=== PATIENT | male | born 1955 | race Caucasian/White ===

== ENCOUNTER → 2016-07-21 | Outpatient (CLI) | payer MEDICARE ==
[~2016-07-21] MED LIST: ACET-703 PO; ACET-822 PO; ADVI200C PO; AMLO10TA2 PO; AMLO2.5T PO; ATOR10TA15 PO; ATOR40TA16 PO; CYCL1TAB29 PO; CYCL5TAB PO; DICL1CAP3 PO; DICL75TA PO; DIPH1TAB36 PO; GLIP5TAB8 PO; LEVEMIR SQ; METH750T PO; NIGH25TA11; OXYB5TAB PO; TRAM50TA PO
[2016-07-21 12:04] LABS: AUTOMATED NEUTROPHIL # 5.8 TH/MM3 (1.8-7.7); BASOPHIL # 0.1 TH/MM3 (0-0.2); BASOPHIL % 0.9 % (0.0-2.0); EOSINOPHIL # 0.5 TH/MM3 (0-0.4); EOSINOPHIL % 5.8 % (0.0-4.0); HEMATOCRIT 32.3 % (39.0-51.0); HEMO FLAGS DIFF FINAL; LYMPH % 23.6 % (9.0-44.0); LYMPHOCYTE # 2.1 TH/MM3 (1.0-4.8); MEAN CELL VOLUME 91.4 FL (80.0-100.0); MEAN CORPUSCULAR HEMOGLOBIN 30.5 PG (27.0-34.0); MEAN CORPUSCULAR HGB CONC 33.3 % (32.0-36.0); MONO % 6.3 % (0.0-8.0); NEUT % 63.4 % (16.0-70.0); PLATELET COUNT 188 TH/MM3 (150-450); RED BLOOD COUNT 3.53 MIL/MM3 (4.50-5.90); RED CELL DISTRIBUTION WIDTH 13.8 % (11.6-17.2); WHITE BLOOD COUNT 9.1 TH/MM3 (4.0-11.0)
--- NOTE | 2016-07-22 20:39 | EKG ---
Date Performed: 07/21/2016 Time Performed: 10:52:18 PTAGE: 61 years EKG: Sinus rhythm MODERATE INTRAVENTRICULAR CONDUCTION DELAY BORDERLINE ECG Compared to prior tracing no significant c stacey DOCTOR: Anneliese Myles Interpretating Date/Time 07/22/2016 20:38:01
== END ==
LOC: CPRE 07:25
PROVIDERS: ATTEND Urology
DX: Z01.810 Encounter for preprocedural cardiovascular examination (principal); Z01.812 Encounter for preprocedural laboratory examination; N52.9 Male erectile dysfunction, unspecified
CPT/HCPCS: 36415; 85025; 93005

== ENCOUNTER → 2016-07-28 | Day surgery (SDC) | payer MEDICARE ==
[~2016-07-28] VITALS: Ht 182.9 cm; Wt 166.7 kg
[~2016-07-28] MED LIST changes: -ADVI200C PO; -AMLO2.5T PO; +AMPICILLIN/SULBAC 3 GM/NS 100 ML IV PRN; -ATOR10TA15 PO; +CHLORHEXIDINE GLUCONATE 2 % 1 PACK (2 CLOTHS) TOPICAL PRN; -CYCL5TAB PO; -DICL1CAP3 PO; +DICLOFENAC SODIUM 37.5 MG/ML VIAL IV PUSH ONE; +DO NOT ADM ANY ANTICOAGULANT DRUGS PRN; +FAMOTIDINE 20 MG/2 ML VIAL IV ONE; +FAMOTIDINE 20 MG/2 ML VIAL ONE; +GENTAMICIN ONE; +INSULIN HUMAN REGULAR 1,000 UNITS/10 ML VIAL SQ PRN; +LACTATED RINGER'S 1000 ML INJ 1,000 ML IV SCH; +METOCLOPRAMIDE HCL 10 MG/2 ML VIAL IV ONE; +METOCLOPRAMIDE HCL 10 MG/2 ML VIAL ONE; +METOPROLOL TARTRATE 25 MG TAB PO PRN; +MIDAZOLAM HCL 2 MG/2 ML VIAL IV ONE; +MIDAZOLAM HCL 2 MG/2 ML VIAL ONE; +ONDANSETRON HCL 4 MG/2 ML VIAL IV PUSH ONE; +ONDANSETRON HCL 4 MG/2 ML VIAL IV PUSH PRN; +POVIDONE IODINE 5% (ANTISEPSIS KIT) 4 APPLICATIONS EACH NARE PRN; +PROPOFOL 200 MG/20 ML AMP IV ONE; +RIFAMPIN ONE; +SODIUM CHLORID 0.9% 500 ML IV PRN; +SODIUM CHLORIDE 0.9% ONE; +SUGAMMADEX SODIUM 200 MG/2 ML VIAL IV PUSH ONE; +VANCOMYCIN HCL 1000 MG ON-CALL/NS 250 ML IV SCH; +ceFAZolin INJ 1,000 MG VIAL ONE; +fentaNYL CITRATE 250 MCG/5 ML AMP ONE
[2016-07-28 06:37] VITALS: BP 147/77; PULSE 81; RESP 18; TEMP 98.1; O2SAT 94
[2016-07-28 11:19] VITALS: BP 146/84; PULSE 76; RESP 18; TEMP 97.3; O2SAT 98
== END | disposition home or self-care (01) ==
LOC: HSDC 05:41
PROVIDERS: ATTEND Urology
DX: N52.9 Male erectile dysfunction, unspecified (principal); N39.46 Mixed incontinence; B35.6 Tinea cruris; I10 Essential (primary) hypertension; J44.9 Chronic obstructive pulmonary disease, unspecified; E11.9 Type 2 diabetes mellitus without complications; Z79.4 Long term (current) use of insulin; Z53.09 Procedure and treatment not carried out because of other contraindication; Z85.46 Personal history of malignant neoplasm of prostate
CPT/HCPCS: 00938; 54405; J0295; J0690; J2250; J2405; J2765; J3010; J3370; J7050; J7120; J1130

== ENCOUNTER 2018-03-22 07:56 | Observation (INO) ==
[2018-03-22] MEDS ORDERED: Metoprolol Tartrate 25 MG Tablet PO ONE (08:23)
[2018-03-22] MEDS ORDERED: Chlorhexidine Gluconate 2% 1 Pack (2 Cloths) TOPICAL ONE (08:23)
[2018-03-22] MEDS ORDERED: Sodium Chlor 0.9% Inj 500 ML IV.SIG ONE (09:00)
[2018-03-22] MEDS ORDERED: Insulin NovoLIN Regular Correctional Sugar Inj SQ SCH (09:02)
[2018-03-22 11:02] LABS: Calcium 8.2 mg/dL (8.5-10.1); Carbon Dioxide 23.9 meq/L (21.0-32.0)
--- NOTE | 2018-03-22 11:02 | P.PNVS ---
- Pre-operative Note Planned Procedure: RIGHT ARM AVF (likely brachiobasilic) Interval History: pt has been feeling well; no changes that would preclude OR Labs: pending Blood: T&S Imaging: duplex reviewed - adequate B UE basilic veins Orders: NPO Vanc 1g Iv OCTOR Post-operative Destination: PACU and CPCU Operative site marked: Yes Consent: Informed consent has been obtained from Flo Aguillon. I have explained the procedure in detail and discussed the risks, benefits, and potential complications. All questions have been answered.
[2018-03-22 11:03] LABS: Potassium 4.1 meq/L (3.5-5.1)
[2018-03-22] MEDS ORDERED: fentaNYL Citrate Inj 250 MCG/5 ML Ampul ONE (13:14)
[2018-03-22] MEDS ORDERED: Heparin/NS PF Inj 500 ML ONE (13:28)
[2018-03-22] MEDS ORDERED: Bupivacaine PF 0.5% Inj 10 ML Vial ONE (13:28)
[2018-03-22] MEDS ORDERED: Thrombin Topical 20,000 UNIT Spray Kit TOPICAL ONE (13:28)
[2018-03-22] MEDS ORDERED: Heparin 10,000 UNITS/10 ML Vial (for IV use) ONE (13:28)
[2018-03-22] MEDS ORDERED: Protamine Sulfate Inj 50 MG/5 ML Vial ONE (13:28)
[2018-03-22] MEDS ORDERED: ceFAZolin 1 GM Premix Inj 0 GM/0 ML FROZ.PIGGY IV.SIG ONE (13:28)
[2018-03-22] MEDS ORDERED: Cisatracurium Inj 20 MG/10 ML Vial ONE (13:52)
--- NOTE | 2018-03-22 15:27 | ECG ---
Date Performed: 03/22/2018 Time Performed: 09:27:57 PTAGE: 63 years EKG: ATRIAL FLUTTER/TACHYCARDIA WITH RAPID VENTRICULAR RESPONSE MARKED LEFT AXIS DEVIATION PATTE RN CONSISTENT WITH PULMONARY DISEASE MODERATE INTRAVENTRICULAR CONDUCTION DELAY ST DEPRESSION, CONSID ER SUBENDOCARDIAL INJURY ABNORMAL ECG PREVIOUS TRACING : 03/02/2018 11.15 Since the previous tracing, no significant change noted DOCTOR: Ranjeet Webster Interpretating Date/Time 03/22/2018 15:25:58
[2018-03-22] MEDS ORDERED: Bisacodyl 10 MG Supp RECTAL PRN (15:38)
[2018-03-22] MEDS ORDERED: Metoprolol Inj 5 MG/5 ML Vial IV.PUSH PRN (15:38)
--- NOTE | 2018-03-22 15:38 | P.OP ---
- Preoperative Diagnosis (1) ESRD (end stage renal disease) on dialysis - Postoperative Diagnosis (1) ESRD (end stage renal disease) on dialysis Date of procedure: 03/22/18 Procedure: R brachiobasilic AVF (1st stage) Implants: none Anesthesia: SULEMA Surgeon: Osvaldo Dill MD Community Educator: Avni Pack Estimated blood loss (mL): 30 IV fluids (mL): 500 Pathology: none sent Operation and Findings: 5mm vein, 5mm artery good thrill and radial Doppler signal after AVF creation
[2018-03-22] MEDS: dilTIAZem 60 MG Tablet PO SCH ×2 (16:14→19:03)
[2018-03-22] MEDS ORDERED: Heparin 10,000 UNITS/10 ML Vial (for IV use) OTHER PRN ×2 (16:43)
[2018-03-22] MEDS ORDERED: Acetaminophen 325 MG Tablet PO PRN (16:43)
[2018-03-22] MEDS ORDERED: Gelatin 12 MM/7 MM Topical Foam TOPICAL PRN (16:43)
[2018-03-22] MEDS ORDERED: Sod Chloride 0.9% Inj 1,000 ML IV.CONT PRN (16:43)
[2018-03-22] MEDS ORDERED: Sod Chloride 0.9% Inj 1,000 ML OTHER PRN ×2 (16:43)
[2018-03-22] MEDS ORDERED: Albumin Human 25% Inj 100 ML IV.SIG PRN (16:43)
--- NOTE | 2018-03-22 17:08 | P.CONNP ---
History of Present Illness Service: Nephrology Reason for Consult: ESRD Primary Care Provider: Aidan Villalba MD History of Present Illness: Mr. Aguillon is 63 year old with ESRD on HD at [facility] on MWF. Patient has history of obesity, hypertension, and DM 2. Also has history of prostatectomy for prostate cancer. He underwent right brachiobasilic AVF today. Seen after surgery. Not in distress. [facility] - History History Provided By: Patient - Medical History Medical History: Medical History (Last Reviewed 03/02/18 @ 11:15 by Jillian Manzo) Diabetes Kidney disease Vascular dialysis catheter in place - Tobacco History Second Hand Smoke Exposure: Yes Tobacco Use In Past 30 Days: No Smoking Status: Former smoker Tobacco Type: Cigarettes - Alcohol History How Often Do You Have a Drink Containing Alcohol: Never - Substance Use History Substance History: No History of Abuse - Travel History Recent Travel in the [facility] Within the Last 8 Weeks: No Recent Travel Out of the Country Within the Last 8 Weeks: No Medications and Allergies Active Medications: Active Medications Acetaminophen (Tylenol) 650 mg PO UNSCH PRN PRN Reason: SEE LABEL COMMENTS Al Hydroxide/Mg Hydroxide (Milk Of Aly Araujo) 30 ml PO Q12H PRN PRN Reason: Mild Constipation Amiodarone HCl (Cordarone) 200 mg PO BID [facility] Amlodipine Besylate (Norvasc) 10 mg PO DAILY [facility] Apixaban (Eliquis) 5 mg PO BID [facility] Aspirin (Aspirin Chew) 81 mg PO DAILY [facility] Atorvastatin Calcium (Lipitor) 20 mg PO DAILY [facility] Bisacodyl (Dulcolax Supp) 10 mg RECTAL DAILY PRN PRN Reason: SEVERE CONSITIPATION Calcium Acetate (Phoslo) 667 mg PO TID [facility] Clonidine HCl (Catapres) 0.1 mg PO UNSCH PRN PRN Reason: SEE LABEL COMMENTS Cyclobenzaprine HCl (Flexeril) 10 mg PO TID PRN PRN Reason: Muscle Pain Diltiazem HCl (Cardizem) 60 mg PO TID [facility] Last Admin: 03/22/18 16:14 Dose: 60 mg Diphenhydramine HCl (Benadryl) 25 mg PO UNSCH PRN PRN Reason: SEE LABEL COMMENTS Epoetin Con (Epogen Inj) 10,000 unit IV.PUSH UNSCH PRN PRN Reason: SEE LABEL COMMENTS Gelatin (Gelfoam 12 Mm/7 Mm Topical) 1 foam TOPICAL PRN PRN PRN Reason: help stop bleeding from site Gentamicin Sulfate (Gentamicin Inj) 20 mg OTHER WITH DIALYSIS PRN PRN Reason: Dwell Gentamycin Lock Heparin Sodium (Porcine) (Heparin Inj) 5,000 units SQ Q8H [facility] Stop: 03/23/18 20:59 Heparin Sodium (Porcine) (Heparin Inj) 8,000 units OTHER WITH DIALYSIS PRN PRN Reason: for machine prime Heparin Sodium (Porcine) (Heparin Inj) 1,000 units OTHER WITH DIALYSIS PRN PRN Reason: Dwell Heparin to Fill Catheter Hydromorphone HCl (Dilaudid) 2 mg PO Q4H PRN PRN Reason: PAIN SCALE 6 TO 10 Stop: 03/22/18 23:55 Lactated Ringer's (Lr 1000 Ml Inj) 1,000 mls @ 30 mls/hr IV.SIG .Q24H [facility] Stop: 03/23/18 08:29 Last Admin: 03/22/18 09:24 Dose: Not Given Sodium Chloride (Ns Inj) 500 mls @ 30 mls/hr IV.SIG .Q10H ONE Stop: 03/23/18 01:39 Last Admin: 03/22/18 09:00 Dose: 30 mls/hr Albumin Human (Flexbumin 25% Inj) 100 mls @ 60 mls/hr IV.SIG WITH DIALYSIS PRN PRN Reason: hypotension / volume replace Sodium Chloride (Ns Inj) 1,000 mls @ 0 mls/hr OTHER .Q0M PRN PRN Reason: for prime and rinse back Sodium Chloride (Ns Inj) 1,000 mls @ 200 mls/hr OTHER .Q5H PRN PRN Reason: for dialyzer flush PRN Sodium Chloride (Ns Inj) 1,000 mls @ 0 mls/hr IV.CONT .Q0M PRN PRN Reason: hypotension / volume replace Insulin Human Regular (Novolin R Correctional Sugar Inj) 0 units SQ STOCK REPLENISHER [facility] ; Protocol Stop: 03/25/18 09:01 Last Admin: 03/22/18 09:15 Dose: 10 units Lactulose (Lactulose Liq) 30 ml PO DAILY PRN PRN Reason: SEVERE CONSITIPATION Mannitol (Mannitol Inj) 12.5 gm IV.PUSH UNSCH PRN PRN Reason: hypotension / volume replace Metoprolol Succinate (Toprol Xl) 100 mg PO DAILY [facility] Metoprolol Tartrate (Lopressor Inj) 5 mg IV.PUSH Q4H PRN PRN Reason: SYS BP GREATER THAN 170 MMHG Miscellaneous Information ([facility] Information) 1 each OTHER UNSCH PRN PRN Reason: SEE LABEL COMMENTS Stop: 03/23/18 15:35 Nitroglycerin (Nitrostat Sl) 0.4 mg SL Q5M PRN PRN Reason: CHEST PAIN Ondansetron HCl (Zofran Inj) 4 mg IV.PUSH UNSCH PRN PRN Reason: NAUSEA OR VOMITING Oxycodone HCl (Roxicodone) 5 mg PO Q4H PRN PRN Reason: PAIN SCALE 1 TO 5 Stop: 03/22/18 23:55 Senna/Docusate Sodium (Nori-Colace) 1 tab PO BID [facility] Sennosides (Senokot) 17.2 mg PO Q12H PRN PRN Reason: Moderate Constipation Sodium Bicarbonate (Sodium Bicarbonate) 325 mg PO QID [facility] Sodium Chloride (Ns Flush) 5 ml IV.FLUSH PRN PRN PRN Reason: flush each lumen during HD Tramadol HCl (Ultram) 50 mg PO BID PRN PRN Reason: Pain 1-10 Vitamin D (Vitamin D3) 1,000 unit PO DAILY [facility] Allergies Allergy/AdvReac Type Severity Reaction Status Date / Time No Known Allergies Allergy Verified 03/22/18 08:22 Home Medications Medication Instructions Recorded Confirmed Type amiodarone 200 mg PO BID 03/02/18 03/22/18 History amlodipine 10 mg PO DAILY 03/02/18 03/22/18 History apixaban [Eliquis] 5 mg PO BID 03/02/18 03/22/18 History atorvastatin 20 mg PO DAILY 03/02/18 03/22/18 History calcium acetate 667 mg PO TID 03/02/18 03/22/18 History cholecalciferol (vitamin D3) 1,000 unit PO DAILY 03/02/18 03/22/18 History [Vitamin D3] cyclobenzaprine 10 mg PO TID PRN 03/02/18 03/22/18 History diltiazem HCl [Cardizem] 60 mg PO TID 03/02/18 03/22/18 History metoprolol succinate 100 mg PO DAILY 03/02/18 03/22/18 History sodium bicarbonate 325 mg PO QID 03/02/18 03/22/18 History tramadol 50 mg PO BID PRN 03/02/18 03/22/18 History Exam Vital signs: Vital Signs 03/22/18 09:05 03/22/18 15:35 03/22/18 15:45 Temperature 98.0 F 98.4 F Pulse Rate 119 H 114 H 115 H Respiratory Rate 18 20 18 Blood Pressure 140/87 130/98 H 121/56 L Pulse Oximetry 99 93 L 92 L 03/22/18 16:00 03/22/18 16:15 03/22/18 16:30 Temperature Pulse Rate 116 H 113 H 114 H Respiratory Rate 22 22 21 Blood Pressure 108/59 L 116/59 L 103/67 Pulse Oximetry 95 97 97 Intake & Output 03/21/18 03/22/18 03/22/18 18:59 06:59 18:59 Intake Total 500 / 500 Output Total 30 / 30 Balance 470 / 470 Weight 148.1 kg Intake: Anesthesia Amount 500 / 500 Output: Estimated Blood Loss 30 Other: # Voids 1 Weight On Admission 148.1 kg - Constitutional no acute distress - Routine HEENT Exam Head: Present: normocephalic, atraumatic Eye: Present: EOMI, PERRL - Routine Neck Exam Present: supple - Routine Respiratory Exam Present: CTA bilaterally - Routine Cardiovascular Exam Present: RRR, S1, S2 - Routine Abdominal Exam Present: soft, normoactive bowel sounds - Routine Extremities Exam Present: edema. Absent: cyanosis, clubbing Results - Lab Results 03/22/18 08:55 Most recent lab results Calcium 8.2 mg/dL (8.5-10.1) L 03/22/18 08:55 Assessment and Plan - Assessment (1) ESRD (end stage renal disease) on dialysis Code(s): N18.6 - End stage renal disease; Z99.2 - Dependence on renal dialysis Status: Acute Plan: He usually dialyzes MWF. I have ordered dialysis for tomorrow. During my interview, the patient became very angry that he needs to undergo dialysis here in the hospital. Apparently he was told that "he can miss dialysis on Wednesday ". He is upset that he is getting conflicting responses. It is unclear who had told him that he could miss dialysis tomorrow. I have recommended he undergo dialysis here in the hospital or at his clinic tomorrow. He became even more angry, starting cursing, threw the breakfast tray. Therefore it is unclear if he will agree for dialysis tomorrow. (2) Type 2 diabetes mellitus Code(s): E11.9 - Type 2 diabetes mellitus without complications Status: Acute Plan: Blood sugar appears to be poorly controlled. Recommend to maintain blood glucose between 140 and 180. - Attending Attestation Thanks for the consult!
--- NOTE | 2018-03-22 18:14 | MP ---
cc: Osvaldo Dill MD DATE OF OPERATION: 03/22/2018 PREOPERATIVE DIAGNOSIS: Endstage renal disease, need for dialysis access. POSTOPERATIVE DIAGNOSIS: Endstage renal disease, need for dialysis access. PROCEDURE PERFORMED: Right brachiobasilic arteriovenous fistula (first stage). ATTENDING SURGEON: Osvaldo Dill MD DESK DIRECTOR SURGEON: Avni Pack. ANESTHESIA: General. INDICATIONS FOR PROCEDURE: Mr. Aguillon is a 63-year-old gentleman with end-stage renal disease, currently getting dialysis through a tunneled catheter. He presents for elective access. Preoperative duplex imaging suggested his right basilic vein was the most appropriate vein. DESCRIPTION OF PROCEDURE: Informed consent was obtained from the patient. He was taken to the operating room and placed supine on the operating table. An appropriate timeout was taken to ensure the patient's identity, operative site and planned procedure. The administration of 1 gram of vancomycin was initiated prior to skin incision and will be discontinued after single preoperative dose. Vancomycin was chosen because of the patient's end-stage renal disease. Everyone in the room agreed with the timeout and we proceeded. His right arm was prepped and draped. Incision made over the distal aspect of the upper arm, carried down through subcutaneous tissue with electrocautery. Basilic vein was identified and dissected free for several centimeters. Side branches were ligated with 3-0 silk. The vein was marked for orientation, clamped distally, transected and the distal end was oversewn with 3-0 silk. The brachial artery was identified in the medial aspect of the incision and dissected free for several centimeters. The patient was systemically heparinized with 3000 units of intravenous heparin. Proximal and distal control of the brachial artery were obtained with profunda clamps and a longitudinal arteriotomy was made with an 11 blade, extended with Gilbert scissors. The vein was spatulated and sewn end-to-side with running 6-0 Prolene suture. At the completion, it was flushed and noted to be hemostatic. The clamps were released. There was nice Doppler signal in the radial artery at the wrist and an excellent thrill in the fistula. The wound was infiltrated with Marcaine, made hemostatic and closed with 2-0 Polysorb, 3-0 Polysorb and 4-0 Monocryl. The heparin had been reversed with protamine. There were no complications. I was present and scrubbed for the entire procedure. MD Rae Shea , 05:42 PM , 05:49 PM
[2018-03-22] MEDS: Amiodarone 200 MG Tablet PO SCH (20:31)
[2018-03-22] MEDS: Senna/Docusate Sodium 8.6/50 MG Tablet PO SCH (23:31)
[2018-03-22] MEDS: Calcium Acetate 667 MG Capsule PO SCH (23:32)
[2018-03-23 04:21] LABS: Hematocrit 32.8 % (39.0-51.0); Hemoglobin 10.9 gm/dL (13.0-17.0); Mean Corpuscular HGB Conc 33.4 % (32.0-36.0); Mean Corpuscular Hemoglobin 28.4 pg (27.0-34.0); Mean Corpuscular Volume 85.1 fL (80.0-100.0); Platelet Count 234 th/mm3 (150-450); Red Blood Count 3.85 mil/mm3 (4.50-5.90); Red Cell Distribution Width 15.7 % (11.6-17.2); White Blood Count 10.8 th/mm3 (4.0-11.0)
[2018-03-23 04:41] LABS: Calcium 8.2 mg/dL (8.5-10.1); Carbon Dioxide 25.2 meq/L (21.0-32.0); Potassium 3.7 meq/L (3.5-5.1)
[2018-03-23 07:24] VITALS: O2SAT 96
--- NOTE | 2018-03-23 07:53 | P.PNVS ---
Subjective Post Op Day #: 1 Procedure: R brachiobasilic AVF Subjective/Hospital Course: looks good, no hand complaints Objective Vital Signs / I&O: Vital Signs 03/22/18 09:05 03/22/18 15:35 03/22/18 15:45 Temperature 98.0 F 98.4 F Pulse Rate 119 H 114 H 115 H Respiratory Rate 18 20 18 Blood Pressure 140/87 130/98 H 121/56 L Pulse Oximetry 99 93 L 92 L 03/22/18 16:00 03/22/18 16:15 03/22/18 16:30 Temperature Pulse Rate 116 H 113 H 114 H Respiratory Rate 22 22 21 Blood Pressure 108/59 L 116/59 L 103/67 Pulse Oximetry 95 97 97 03/22/18 17:00 03/22/18 18:00 03/22/18 20:00 Temperature 97.7 F Pulse Rate 114 H 111 H 113 H Respiratory Rate 22 19 12 Blood Pressure 101/67 114/66 129/76 Pulse Oximetry 97 98 94 L 03/22/18 21:25 03/23/18 00:00 03/23/18 03:28 Temperature 98.2 F 98.4 F Pulse Rate 115 H 116 H 116 H Respiratory Rate 18 18 Blood Pressure 138/89 96/68 L Pulse Oximetry 96 95 03/23/18 04:00 03/23/18 04:28 03/23/18 05:00 Temperature 98.3 F Pulse Rate 112 H 101 H 100 H Respiratory Rate 18 Blood Pressure 102/70 Pulse Oximetry 96 03/23/18 06:00 Temperature Pulse Rate 112 H Respiratory Rate Blood Pressure Pulse Oximetry Intake & Output 03/22/18 03/23/18 03/23/18 18:59 06:59 18:59 Intake Total 740 / 740 1440 / 1440 Output Total 30 / 30 275 / 275 Balance 710 / 710 1165 / 1165 Weight 148.1 kg 147.2 kg Intake: Oral 240 / 240 1440 / 1440 Anesthesia Amount 500 / 500 Output: Urine 275 / 275 Estimated Blood Loss 30 / 30 Other: # Voids 1 1 Weight On Admission 148.1 kg Exam: R UE incision with minimal ecchymoses +thrill hand ok Laboratory Results - last 24 hr 03/22/18 03/22/18 03/22/18 08:53 08:55 08:55 WBC RBC Hgb Hct MCV MCH MCHC RDW Plt Count MPV Sodium 130 L Potassium 4.1 Chloride 96 L Carbon Dioxide 23.9 Anion Gap 10 BUN 52 H Creatinine 5.93 H Estimated GFR 10 L POC Glucose 318 H Random Glucose 315 H Calcium 8.2 L Blood Type A Positive Blood Type Recheck Not needed Antibody Screen Negative 03/22/18 03/22/18 03/23/18 13:46 15:41 04:09 WBC 10.8 RBC 3.85 L Hgb 10.9 L Hct 32.8 L MCV 85.1 MCH 28.4 MCHC 33.4 RDW 15.7 Plt Count 234 MPV 8.0 Sodium Potassium Chloride Carbon Dioxide Anion Gap BUN Creatinine Estimated GFR POC Glucose 182 H 218 H Random Glucose Calcium Blood Type Blood Type Recheck Antibody Screen 03/23/18 04:09 WBC RBC Hgb Hct MCV MCH MCHC RDW Plt Count MPV Sodium 130 L Potassium 3.7 Chloride 94 L Carbon Dioxide 25.2 Anion Gap 11 BUN 56 H Creatinine 6.21 H Estimated GFR 9 L POC Glucose Random Glucose 326 H Calcium 8.2 L Blood Type Blood Type Recheck Antibody Screen Assessment and Plan - Assessment (1) ESRD (end stage renal disease) on dialysis Code(s): N18.6 - End stage renal disease; Z99.2 - Dependence on renal dialysis Status: Acute - Plan POD#1 s/p R UE BB AVF 1. HD today 2. D/C after HD Discharge Planning: after HD
[2018-03-23 08:23] VITALS: BP 131/74; RESP 20; TEMP 97.9
[2018-03-23] MEDS: Amiodarone 200 MG Tablet PO SCH (08:59)
[2018-03-23] MEDS: Senna/Docusate Sodium 8.6/50 MG Tablet PO SCH (08:59)
[2018-03-23] MEDS ORDERED: amLODIPine 10 MG Tablet PO SCH (09:00)
[2018-03-23] MEDS: Calcium Acetate 667 MG Capsule PO SCH (09:00)
[2018-03-23] MEDS: dilTIAZem 60 MG Tablet PO SCH (09:00)
[2018-03-23 09:20] VITALS: PULSE 116
--- NOTE | 2018-03-23 09:27 | P.DS ---
Discharge Summary - Admission Date 03/22/18 16:04 - Admission Diagnosis (1) ESRD (end stage renal disease) on dialysis - Discharge Date 03/23/18 - Discharge Diagnosis (1) AVF (arteriovenous fistula) Status: Acute (2) ESRD (end stage renal disease) on dialysis Status: Acute - Summary Brief History from admission: 63/M w/ a Hx of ESRD on HD Admitted for a R UE AVF creation Procedure: R brachiobasilic AVF Significant Findings: Palpable thrill near R UE AVF No hand pain Mild ecchymosis noted near incision line palpable R radial pulse noted Abnormal Lab Results 03/22/18 03/22/18 03/22/18 08:55 08:55 13:46 WBC RBC Hgb Hct MCV MCH MCHC RDW Plt Count MPV Sodium 130 L Potassium 4.1 Chloride 96 L Carbon Dioxide 23.9 Anion Gap 10 BUN 52 H Creatinine 5.93 H Estimated GFR 10 L POC Glucose 182 H Random Glucose 315 H Calcium 8.2 L Blood Type A Positive Blood Type Recheck Not needed Antibody Screen Negative 03/22/18 03/23/18 03/23/18 15:41 04:09 04:09 WBC 10.8 RBC 3.85 L Hgb 10.9 L Hct 32.8 L MCV 85.1 MCH 28.4 MCHC 33.4 RDW 15.7 Plt Count 234 MPV 8.0 Sodium 130 L Potassium 3.7 Chloride 94 L Carbon Dioxide 25.2 Anion Gap 11 BUN 56 H Creatinine 6.21 H Estimated GFR 9 L POC Glucose 218 H Random Glucose 326 H Calcium 8.2 L Blood Type Blood Type Recheck Antibody Screen Hospital Course: 63/M with a hx of ESRD on HD every M/W/F Pt s/p R UE AVF POD 1 doing well pain controlled UE warm w/o motor deficits Palpable R radial pulses Pt clear for D/C post HD Pt refusing HD and stated he will go to his regular facility to continue HD therapy Arranged out pt f/u in 3-4 W D/C instructions reviewed and questions answered - Discharge Instructions Any questions or concerns: Call [facility] at [facility] [phone] Discharge Plan - Discharge Disposition Patient Disposition: 01 Discharge Home - Discharge Condition Condition: Good - Discharge Order Discharge Orders: Discharge Order (Routine); Ordered 03/23/18 Ordered By: Arely Headley - Physicians Team Primary Care Provider: Aidan Villalba Attending Provider: Osvaldo Dill Other Providers: Jim Parr MD - Rxs /Orders / Referrals /Forms Prescriptions: Continue amiodarone 200 mg Tablet 200 mg PO BID amlodipine 10 mg Tablet 10 mg PO DAILY apixaban [Eliquis] 5 mg Tablet 5 mg PO BID atorvastatin 20 mg Tablet 20 mg PO DAILY calcium acetate 667 mg Tablet 667 mg PO TID cholecalciferol (vitamin D3) [Vitamin D3] 1,000 unit Capsule 1,000 unit PO DAILY cyclobenzaprine 10 mg Tablet 10 mg PO TID PRN (Reason: Muscle Pain) diltiazem HCl [Cardizem] 60 mg Tablet 60 mg PO TID metoprolol succinate 100 mg Tablet Extended Release 24 Hr 100 mg PO DAILY sodium bicarbonate 325 mg Tablet 325 mg PO QID tramadol 50 mg Tablet 50 mg PO BID PRN (Reason: Pain) Referrals: Aidan Villalba MD [Primary Care Provider] - See Instructions Osvaldo Dill MD [Physician] - See Instructions (3-4W in our out pt clinic ) - Post Discharge Care Plan Care Plan Goals: Discharge Care Plan Goals After Vascular Surgery Contact: Please call [phone] if you have any problems or have questions regarding your hospitalization. Directions to Meet Your Goals: 1. Diet: * You may resume a regular diet as you were eating at home before your admission. 2. Activity: * Increase your activity level gradually. * Keep surgical extremities elevated when at rest. This will help limit the swelling, bruising and discomfort normally present after surgery. * Walking is a good form of light exercise. Go for a walk at least 3 times per day. * No heavy lifting (lifting over 10 pounds) for at least 4 weeks from surgery. * Check with your surgeon to ensure when you are cleared for heavy lifting and full-intensity exercising. * Your strength will gradually improve. * No driving or operating motorized vehicles while on prescription pain medications. * No swimming until wounds fully healed. * Return to work when cleared by MD/PA/PLASMA CENTER TECHNICIAN. 3. Bathing: Shower daily. * Gently let soap and water run over your incision and pat dry. Do not scrub the incision/wound. * Don't soak in a bath or submerge your incision in water until your incision is healed and evaluated by your physician at follow-up (usually two weeks). 4. Wound Care: INCISION SITE CARE INSTRUCTIONS: * You may leave your incision open to air. * Keep your incision clean and dry, unless showering. See above. * Moisture near the incision will cause the wound to open. * No lotions, creams, ointments, or powders on incisions until they are well- healed. * If you have glue over the incision(s), allow it to fall off naturally in 1-3 weeks * If present, shannon/sutures will be removed 2-3 weeks after surgery during your follow-up clinic visit. * If present, change dressing/bandage when soaked/soiled as needed. * Observe wound daily, checking for signs and symptoms of infection including: foul odor, drainage from the incision, increased redness, increased pain at incision, or increased swelling. 5. Pain Control: Expect post-operative pain for 1-4 weeks after surgery. Your pain will improve gradually. * You may have been provided with a prescription for pain medication. Please take as directed, and be aware of side effects such as drowsiness, constipation and mild stomach discomfort. Pain pills on an empty stomach can cause nausea , so eat a small amount of food, such as crackers, when taking these pills. * Take [id number]-mfw-[id number] stool softeners (Colace or Senna) with your prescribed pain medication. * Acetaminophen (500mg every 6 hours) or Ibuprofen (400mg every 6 hours) may be used in conjunction with narcotics to relieve pain. DO NOT take more than 4 grams (4000mg) of Tylenol in one day, as this can harm your liver. DO NOT take ibuprofen IF: you have an allergy to non-steroidal anti-inflammatory medications, you are taking Coumadin, you have been told you have kidney problems, or you have a history of gastrointestinal bleeding or ulcers. DO NOT take more than 3.2 grams (3200mg) of ibuprofen in one day. * You may also find relief from using heat packs or pads or ice packs. 6. Bowel Regimen for Constipation: * People who undergo surgery are likely to develop post-operative constipation. Exposure to narcotics and changes in diet, fluid intake, and physical activity are known contributors to constipation. We recommend routine stool softeners and/ or laxatives after surgery for most patients. Start by taking one medication. You can increase as directed to relieve constipation. Stop taking these medications if you develop diarrhea. These medications are available over-the- counter and do not require a prescription: * Colace is a stool softener. We recommend starting at 100mg orally twice per day as needed for soft stools and increase to a maximum of 200mg twice daily as needed. * Senna is a laxative that works by keeping water in the intestine to help stool move along the intestinal tract. Take 1 tablet daily as needed for soft stool and increase to a maximum of 2 tablets twice daily as needed. Take Senna with two full glasses of water each time. * Miralax, Dulcolax and Milk of Magnesia are other [id number]-nrhnxld laxatives that may be used as needed for post-operative constipation. * Drink 6-8 glasses of water per day. * Consume 15-30g of fiber per day: * Metamucil powder, 1-2 tablespoons 1-2 times/day OR Benefiber powder, 2 tablespoons 4 times/day. * Avoid straining. 7. Follow-Up: Do Not miss your follow-up appointment. Keep up with all your appointments and yearly check ups If you have any of the following symptoms please call [phone] immediately: Excessive swelling of the affected extremity Sudden onset of severe or unusual pain in the affected extremity Pain that gets worse or is not relieved by medication Warmth, redness, or swelling in the skin around the wound Foul drainage from incision Extensive bruising or discoloration Wound that opens up or pulls apart Fever above 101.5F or shaking chills Nausea or vomiting Severe diarrhea or severe constipation Dizziness or fainting Chest pain, shortness of breath, or increased work of breathing Weight gain >10 lbs over 3-4 days Inability to urinate for more than 6 hours Cloudy or foul smelling urine Urge to urinate more often than usual Symptoms to Report to Your Doctor: Temperature 101F or higher Pain uncontrolled by medication Drainage or foul odor from incision Extensive bruising or discoloration Chest pain Shortness of breath Nausea, vomiting or dizziness Call 911: Call 911 right away if you have: Sudden onset of chest pain that is not relieved by medications Shortness of breath
[2018-03-23] MEDS ORDERED: Heparin - SQ 10,000 UNITS/ML Vial SQ SCH (14:00)
== END 2018-03-23 10:43 | disposition home or self-care (01) ==
LOC: HSDI 07:56 → HSDC 07:56 → HCIS 22:25
PROVIDERS: ADMIT Surgery; ATTEND Surgery
PROC: AVGFTUE (ICD-10-PCS; 2018-03-22 13:55)